=== PATIENT | female | born 1970 | race Hispanic/Latino ===

== ENCOUNTER 2018-05-01 16:38 | Inpatient (IN) | payer BC ==
[~2018-05-01] VITALS: Ht 154.9 cm; Wt 99.8 kg
[2018-05-01] MEDS ORDERED: SODIUM CHLORIDE 0.9% 1000ML 1,000 ML IV ONE (17:19)
[2018-05-01] MEDS ORDERED: MORPHINE SULFATE 4 MG/1ML SYG ONE ×2 (17:19→19:01)
[2018-05-01] MEDS ORDERED: KETOROLAC TROMETHAMINE 30MG/ML ONE (17:19)
[2018-05-01] MEDS ORDERED: ONDANSETRON HCL 4 MG/2 ML VIAL ONE (17:19)
[2018-05-01 17:24] LABS: BASOPHILS % (AUTO) 0.2 % (0.0-5.0); EOSINOPHILS % (AUTO) 0.8 % (0.0-8.0); HEMATOCRIT 41.4 % (36-48); LYMPHOCYTES % (AUTO) 15.1 % (21.0-51.0); MEAN CORPUSCULAR HEMOGLOBIN 31.5 pg (27.0-33.0); MEAN CORPUSCULAR VOLUME 89.9 fL (79-99); MONOCYTES % (AUTO) 4.7 % (3.0-13.0); NEUTROPHILS % (AUTO) 79.2 % (40.0-77.0); PLATELET COUNT (AUTO) 242 K/uL (130-400); RED CELL DISTRIBUTION WIDTH 12.8 % (11.0-15.5)
[2018-05-01 17:38] LABS: APPEARANCE,URINE Cloudy (CLEAR); BILIRUBIN,URINE Negative (NEGATIVE); COLOR,URINE Yellow (YELLOW); GLUCOSE, URINE (UA) Negative (NEGATIVE); KETONES,URINE Negative (NEGATIVE); LEUKOCYTE ESTERASE ,URINE Large (NEGATIVE); NITRATE,URINE Positive (NEGATIVE); OCCULT BLOOD,URINE Large (NEGATIVE); PH,URINE 6.5 (5.0-8.0); PROTEIN,URINE POS 2+ (NEGATIVE)
[2018-05-01 17:42] LABS: POTASSIUM 3.7 mmol/L (3.5-5.1)
[2018-05-01 18:19] LABS: BACTERIA,URINE Moderate /HPF (None Seen); RBC,URINE 26-50 /HPF (0-1); WBC,URINE >100 /HPF (0-1)
[2018-05-01] MEDS ORDERED: SODIUM CHLORIDE 0.9% 100 ML IV ONE (19:01)
[2018-05-01] MEDS ORDERED: CEFTRIAXONE SODIUM 1 GM ONE (19:01)
[2018-05-01] MEDS: SODIUM CHLORIDE 0.9% 1000ML 1,000 ML IV SCH (19:14)
[2018-05-01] MEDS: CEFTRIAXONE SODIUM 1 GM IV SCH (19:15)
[2018-05-01] MEDS ORDERED: ONDANSETRON HCL MDV 20ML 2 MG/ML VIAL IVP PRN (19:15)
[2018-05-01] MEDS ORDERED: MORPHINE SULFATE 2 MG/ML 1ML SYG IV PRN (19:15)
[2018-05-01 23:15] VITALS: BP 123/61
[2018-05-02 04:01] LABS: BASOPHILS % (AUTO) 0.3 % (0.0-5.0); EOSINOPHILS % (AUTO) 0.6 % (0.0-8.0); HEMATOCRIT 38.8 % (36-48); LYMPHOCYTES % (AUTO) 15.9 % (21.0-51.0); MEAN CORPUSCULAR HEMOGLOBIN 30.8 pg (27.0-33.0); MEAN CORPUSCULAR HGB CONC 34.1 g/dL (32.0-36.0); MEAN CORPUSCULAR VOLUME 90.3 fL (79-99); MONOCYTES % (AUTO) 5.1 % (3.0-13.0); NEUTROPHILS % (AUTO) 78.1 % (40.0-77.0); PLATELET COUNT (AUTO) 207 K/uL (130-400); RED BLOOD CELL COUNT(AUTO) 4.29 MIL/uL (4.00-5.50); RED CELL DISTRIBUTION WIDTH 12.8 % (11.0-15.5); WHITE BLOOD COUNT (AUTO) 6.7 K/uL (4.8-10.8)
[2018-05-02 04:10] LABS: CREATININE 0.7 mg/dL (0.5-1.5)
[2018-05-02 04:57] VITALS: BP 114/75
[2018-05-02] MEDS: SODIUM CHLORIDE 0.9% 1000ML 1,000 ML IV SCH ×3 (06:31→20:39)
[2018-05-02 08:00] VITALS: BP 121/77
[2018-05-02] MEDS: TAMSULOSIN HCL 0.4 MG CAP.ER.24H PO SCH (08:47)
[2018-05-02] MEDS: PANTOPRAZOLE SODIUM 40 MG TABLET.DR PO SCH (08:47)
[2018-05-02] MEDS: ENOXAPARIN SODIUM 40 MG/0.4 ML SYRINGE SQ SCH (08:48)
[2018-05-02 11:00] VITALS: BP 127/74
[2018-05-02] MEDS: ACETAMINOPHEN 325 MG TAB PO PRN (12:21)
[2018-05-02] MEDS ORDERED: KETOROLAC TROMETHAMINE 30MG/ML IV PRN (14:30)
[2018-05-02 16:00] VITALS: BP 137/84
[2018-05-02] MEDS: NIFEDIPINE 10 MG CAP PO SCH (16:45)
[2018-05-02] MEDS: CEFTRIAXONE SODIUM 1 GM IV SCH (18:48)
[2018-05-02 20:30] VITALS: BP 120/77
[2018-05-03] VITALS (7 sets, daily range): BP systolic 110–140; BP diastolic 60–83
[2018-05-03] MEDS ORDERED: LACTULOSE 20 GM/30 ML UDCUP ONE (00:07)
[2018-05-03] MEDS: ACETAMINOPHEN 325 MG TAB PO PRN (00:12)
[2018-05-03] MEDS: SODIUM CHLORIDE 0.9% 1000ML 1,000 ML IV SCH ×6 (00:13→20:38)
[2018-05-03] MEDS: LACTULOSE 20 GM/30 ML UDCUP PO SCH ×2 (00:15→19:38)
[2018-05-03] MEDS ORDERED: IOHEXOL 350 MG/ML 100ML INFUS..BTL IV ONE (08:11)
[2018-05-03] MEDS: PANTOPRAZOLE SODIUM 40 MG TABLET.DR PO SCH (09:51)
[2018-05-03] MEDS: TAMSULOSIN HCL 0.4 MG CAP.ER.24H PO SCH (09:52)
[2018-05-03] MEDS: ENOXAPARIN SODIUM 40 MG/0.4 ML SYRINGE SQ SCH (09:53)
[2018-05-03] MEDS: NIFEDIPINE 10 MG CAP PO SCH (13:41)
[2018-05-03] MEDS: CEFTRIAXONE SODIUM 1 GM IV SCH (20:38)
[2018-05-04 03:04] VITALS: BP 132/78
[2018-05-04 08:21] VITALS: BP 139/90
[2018-05-04] MEDS: TAMSULOSIN HCL 0.4 MG CAP.ER.24H PO SCH (08:59)
[2018-05-04] MEDS: PANTOPRAZOLE SODIUM 40 MG TABLET.DR PO SCH (08:59)
[2018-05-04] MEDS: ENOXAPARIN SODIUM 40 MG/0.4 ML SYRINGE SQ SCH (09:00)
[2018-05-04 12:00] VITALS: BP 128/83
[2018-05-04] MEDS ORDERED: TAMS-1 PO (12:57)
[2018-05-04] MEDS ORDERED: IBUP-2077 PO (12:57)
[2018-05-04] MEDS ORDERED: SULF1TAB42 PO (12:57)
== END 2018-05-04 16:22 | disposition home or self-care (01) | DRG 694 ==
LOC: EDH 16:38 → OBSVTOIN 19:14 → EDHIP 19:14 → 4BH 23:01
PROVIDERS: ADMIT Hospitalist; ATTEND Hospitalist
PROC: 3E0234Z Introduction of Serum, Toxoid and Vaccine into Muscle, Percutaneous Approach (ICD-10-PCS; principal; 2018-05-02)
DX: N13.2 Hydronephrosis with renal and ureteral calculous obstruction (principal); Z68.41 Body mass index [BMI] 40.0-44.9, adult; N39.0 Urinary tract infection, site not specified; E86.1 Hypovolemia; B96.20 Unspecified Escherichia coli [E. coli] as the cause of diseases classified elsewhere; E66.01 Morbid (severe) obesity due to excess calories; Z87.442 Personal history of urinary calculi; Z90.710 Acquired absence of both cervix and uterus; Z90.721 Acquired absence of ovaries, unilateral; Z23 Encounter for immunization
CPT/HCPCS: 36415; 74176; 74400; 80048; 81001; 85025; 87077; 87088; 87186; J0696; J1650; J1885; J2270; J2405; J7030; Q2038; Q9967